=== PATIENT | female | born 1970 | race Caucasian/White ===

== ENCOUNTER 2019-11-04 14:46 | Emergency (ER) | payer MEDICAID, MEDICARE, OTHER ==
[~2019-11-04] VITALS: Ht 170.2 cm; Wt 56.7 kg
[2019-11-04 16:35] LABS: BASOPHILS % 0.9 % (0.0-2.0); EOSINOPHILS % 1.5 % (0.0-5.0); HEMATOCRIT. 37.5 % (36.0-48.0); HEMOGLOBIN. 12.9 g/dL (12.0-16.0); LYMPHOCYTES % 20.1 % (20.0-50.0); MEAN CORPUSCULAR HEMOGLOBIN 33.9 pg (28.0-32.0); MEAN CORPUSCULAR VOLUME 98.6 fL (81.0-99.0); MEAN PLATELET VOLUME 8.7 fl (7.4-10.4); MONOCYTES % 6.4 % (2.0-8.0); NEUTROPHILS % 71.1 % (40.0-76.0); PLATELET 174 x1000/uL (130-400)
[2019-11-04 16:41] LABS: CHLORIDE 108 mEq/L (98-107)
[2019-11-04 16:55] LABS: MONOTEST NEGATIVE (NEGATIVE)
[2019-11-04 17:30] VITALS: BP 115/70
== END 2019-11-04 17:32 | disposition home or self-care (01) ==
LOC: ER 14:46
DX: B34.9 Viral infection, unspecified (principal); R51 Headache; J98.8 Other specified respiratory disorders; Z88.2 Allergy status to sulfonamides
CPT/HCPCS: 36415; 80053; 85025; 86308; 87070; 87430; 87804; 99283